=== PATIENT | female | born 1970 | race Asian ===

== ENCOUNTER → 2018-08-29 | Outpatient (CLI) | payer SELFPAY | END | disposition home or self-care (01) | LOC: RAD 15:09 | PROVIDERS: ATTEND Internal Medicine Hematology & Oncology | DX: C71.6 Malignant neoplasm of cerebellum (principal); C50.919 Malignant neoplasm of unspecified site of unspecified female breast; C34.90 Malignant neoplasm of unspecified part of unspecified bronchus or lung; I87.1 Compression of vein | CPT/HCPCS: 36569; 70553; 76937; 77001; C1751 ==

== ENCOUNTER 2018-09-05 13:33 | Outpatient (CLI) | payer SELFPAY ==
[2018-09-05] MEDS ORDERED: GADOBUTROL 7.5 MMOL/7.5 ML PFS ONE (15:30)
== END 2018-09-05 23:59 | disposition home or self-care (01) ==
LOC: CFH 13:33
PROVIDERS: ATTEND Radiology Radiation Oncology
DX: C79.51 Secondary malignant neoplasm of bone (principal)
CPT/HCPCS: 72158; A9585